=== PATIENT | male | born 1970 | race Caucasian/White ===

== ENCOUNTER 2019-09-21 19:20 | Emergency (ER) | payer SELFPAY ==
--- NOTE | 2019-09-21 19:53 | ERPHSYRPT ---
- History of Present Illness Time Seen by Provider: 09/21/19 19:51 Source: patient Exam Limitations: no limitations Patient Subjective Stated Complaint: pt comes in with c/o right shoulder pain. pt states that slipped on the owen on his porch at approximately 1649. pt is able to move his shoulder but has limited ROM. pt skin is pwd. pulsed present and equal. no obvious deformity of discoloration of the area. Triage Nursing Assessment: see above Physician History: pt comes in with c/o right shoulder pain. pt states that slipped on the owen on his porch at approximately 1649. pt is able to move his shoulder but has limited ROM. pt skin is pwd. pulsed present and equal. no obvious deformity of discoloration of the area. Denies any other injury. c/o pain in right middle finger Occurred: just prior to arrival Method of Injury: fell Quality: constant Severity of Pain-Max: moderate Severity of Pain-Current: moderate Extremities Pain Location: shoulder: right, 3rd finger: right Modifying Factors: Improves With: cold therapy Associated Symptoms: none Hx Influenza Vaccination/Date Given: No - Review of Systems Constitutional: No Fever, No Chills Eyes: No Symptoms Ears, Nose, & Throat: No Symptoms Respiratory: No Cough, No Dyspnea Cardiac: No Chest Pain, No Edema, No Syncope Abdominal/Gastrointestinal: No Abdominal Pain, No Nausea, No Vomiting, No Diarrhea Genitourinary Symptoms: No Dysuria Musculoskeletal: Fall, Joint Pain (right shoulder), No Back Pain, No Neck Pain Skin: No Rash Neurological: No Dizziness, No Focal Weakness, No Sensory Changes Psychological: No Symptoms Endocrine: No Symptoms All Other Systems: Reviewed and Negative - Past Medical History Pertinent Past Medical History: No - Past Surgical History Past Surgical History: Yes Musculoskeletal: Orthopedic Surgery Other Surgical History: right knee, right hand - Social History Smoking Status: Current every day smoker Drug Use: none - Nursing Vital Signs Nursing Vital Signs: Initial Vital Signs Temperature 97.9 F 09/21/19 19:21 Pulse Rate 89 09/21/19 19:21 Respiratory Rate 18 09/21/19 19:21 Blood Pressure 131/80 09/21/19 19:21 O2 Sat by Pulse Oximetry 97 09/21/19 19:21 Pain Scale Pain Intensity 2 - Physical Exam General Appearance: alert Eyes, Ears, Nose, Throat Exam: moist mucous membranes Neck Exam: non-tender, supple Cardiovascular/Respiratory Exam: chest non-tender, normal breath sounds, regular rate/rhythm, no respiratory distress Abdominal Exam: non-tender, No guarding Back Exam: normal inspection, No vertebral tenderness Shoulder Exam: limited ROM, pain, soft tissue tenderness Elbow/Forearm Exam: normal inspection Wrist Exam: normal inspection Hand Exam: soft tissue tenderness (right middle finger) Neuro/Tendon Exam: normal sensation, normal motor functions Mental Status Exam: alert, oriented x 3, cooperative Skin Exam: normal color, warm, dry SpO2: 97 - Course Nursing assessment & vital signs reviewed: Yes - Radiology Exams Hand X-ray Interpretation: Reviewed by me, Negative, No Fracture Shoulder X-ray Interpretation: Reviewed by me (mild acromioclavicular joint separation) Ordered Tests: Active Orders 24 hr Category Date Time Status Sling Application STAT Care 09/21/19 20:33 Active HAND (MINIMUM 3 VIEWS) Stat Exams 09/21/19 19:48 Taken SHOULDER Stat Exams 09/21/19 19:47 Taken - Progress Progress: improved, pain not gone completely Progress Note: 09/21/19 20:34 Right shoulder sling applied. Counseled pt/family regarding: diagnosis, need for follow-up, rad results - Departure Departure Disposition: Home Clinical Impression: Acromioclavicular (joint) (ligament) sprain Qualifiers: Encounter type: initial encounter Laterality: right Qualified Code(s): S43.51XA - Sprain of right acromioclavicular joint, initial encounter Condition: Stable Critical Care Time: No Referrals: ISABEL ARANDA MD [ACTIVE STAFF] - [facility]-F [id number] Instructions: Shoulder Sprain (DC) Additional Instructions: SPRAINS/STRAINS/CONTUSIONS 1. Rest the affected area as much as possible for the next few days. 2. Apply ice to the affected area for 20-30 minutes at a time, several times a day. 3. If you receive an elastic wrap, wear it only while awake for comfort and support. Re-wrap the elastic wrap if it feels too tight or too loose. 4. If swelling is present, elevate the affected part above the level of the heart for at least 2 to 3 days. 5. Use splints, slings, or crutches as instructed. 6. Watch for severe swelling, coldness, numbness, and discoloration of the fingers and toes. See your family physician or return to the emergency department if any of these are noted. Discharge/Care Plan SYED CLINE was seen on 09/21/19 in the Emergency Room. The patient was counseled regarding Diagnosis,Lab results, Imaging studies, need for follow up and when to return to the Emergency Room. Prescriptions given: Discharge Note I have spoken with the patient and/or caregivers. I have explained the patient' s condition, diagnosis and treatment plan based on the information available to me at this time. I have answered the patient's and/or caregiver's questions and addressed any concerns. The patient and/or caregivers have as good understanding of the patient's diagnosis, condition and treatment plan as can be expected at this point. The vital signs have been stable. The patient's condition is stable and appropriate for discharge from the emergency department. The patient will pursue further outpatient evaluation with the primary care physician or other designated or consulting physician as outlined in the discharge instructions. The patient and/or caregivers are agreeable to this plan of care and follow-up instructions have been explained in detail. The patient and/or caregivers have received these instruction. The patient/and or caregivers are aware that any significant change in condition or worsening of symptoms should prompt an immediate return to this or the closest emergency department or call 911. SYED CLINE was seen on 09/21/19 n the Emergency Room. At that time you were treated for an emergent condition, during your visit Laboratory, Radiology and/ or other procedures may have been ordered. It is very important that you follow- up with your Primary Care Physician within the next 24-48 hours to review your Emergency Room visit and the final results of testing that was ordered. Some test results such as Urine Cultures, Blood Cultures, and other cultures if ordered will not be finalized for 24-48 hours. If you do not have a Primary Care Provider please call the medical records department at [phone] ext [phone] to obtain a copy of your results or you may sign into our patient portal to obtain these results by visiting us @ [email or web address] and completing the following steps: 1. Click on the Patient Portal link 2. Click the Patient Self Enrollment Link to complete the enrollment form and entering your 3. Once the enrollment form is completed you will receive an email with a temporary ID and password at the email address you provided. 4. Next choose a user name and password. Your user name must be at least 4 characters long and your password must be at least 4 characters long. 5. Choose a security question from the list and provide your answer to the question. If you already have signed into the Health Portal you may access your Health Care Information 06/03 by the following steps: 1. Login to our website @ [email or web address] 2. Enter your original user name and password. FAQS The [facility] Health Portal is an online tool that contains your Lab Results, Radiology Reports, Visit History, Discharge Instructions and Health Summary Lab and Radiology Results will not be available for 72 hours on the portal. The Portal is a secure site, passwords are encryted and URLs are re-written so they cannot be copied and pasted. You and authorized family members are the only ones who can access your Portal. Also there is a timeout feature that protects your information if you leave the Portal page open. If you have technical difficulty please use the Contact Us link on the page this will allow you to submit any questions you have regarding the Portal or you may contact the Medical Record Department at [phone] ext [phone].
[2019-09-21 20:17] VITALS: BP 125/79
[2019-09-21 20:23] VITALS: O2SAT 97
[2019-09-21 20:57] VITALS: PULSE 74
--- NOTE | 2019-09-21 21:49 | XRAY ---
Indication: 3rd finger pain following fall. Comparison: None 3 views of the right hand demonstrates old 5th metacarpal fracture deformity, tiny 5th MCP heterotopic ossifications, and mild degenerative changes base 1st metacarpal. No other bony, articular, or soft tissue abnormalities.
--- NOTE | 2019-09-21 21:51 | XRAY ---
Indication: Pain following fall 2 weeks ago. Comparison: None 3 views of the right shoulder demonstrates minimal AC degenerative arthropathy, 2 tiny humeral shaft benign fibrous cortical defects, and minimal right apex pulmonary fibrosis/scarring. No other bony, articular, or soft tissue abnormalities.
== END 2019-09-21 21:01 | disposition home or self-care (01) ==
LOC: ED 19:20
DX: S43.51XA Sprain of right acromioclavicular joint, initial encounter (principal); W01.0XXA Fall on same level from slipping, tripping and stumbling without subsequent striking against object, initial encounter; Y93.29 Activity, other involving ice and snow; Y92.89 Other specified places as the place of occurrence of the external cause
CPT/HCPCS: 73030; 73130; 99283